=== PATIENT | male | born 1990 | race Caucasian/White ===

== ENCOUNTER 2016-12-06 04:25 | Emergency (ER) | payer SELFPAY ==
[2016-12-06 04:44] VITALS: O2SAT 95
[2016-12-06] MEDS ORDERED: ONDANSETRON ODT 8 MG TAB ONE (05:30)
[2016-12-06] MEDS ORDERED: ONDANSETRON ODT 8 MG TAB SL ONE (05:30)
--- NOTE | 2016-12-06 05:33 | ED.PDOC ---
History of Present Illness - General Chief Complaint: Fever Stated Complaint: fever, cough Time Seen by Provider: 12/06/16 05:30 Source: patient Exam Limitations: no limitations - History of Present Illness Initial Comments: Patient complains of N/V for two days. He is unsure how many times it has happened. He says he has had a "little bit" of non-bloody diarrhea. Also says he has had a fever and runny nose. Denies sick contacts. Denies abdominal pain. + subjective fever. Is able to take in oral fluids. No other complaints. Timing/Duration: other - 2 days Severity: mild Improving Factors: nothing Worsening Factors: nothing Associated Symptoms: denies symptoms Allergies/Adverse Reactions: Allergies Latex Allergy (Mild, Verified 10/02/16 15:31) Rash Home Medications: Ambulatory Orders Cephalexin Monohydrate [Keflex] 500 mg PO Q8H #30 cap 10/26/16 Ondansetron Tab [Zofran Tab] 4 mg PO Q6HR PRN #10 tab 12/06/16 Review of Systems - Review of Systems Constitutional: States: see HPI EENTM: States: see HPI Respiratory: States: no symptoms reported Cardiology: States: no symptoms reported Gastrointestinal/Abdominal: States: see HPI Genitourinary: States: no symptoms reported Musculoskeletal: States: no symptoms reported Skin: States: no symptoms reported Neurological: States: no symptoms reported Endocrine: States: no symptoms reported Hematologic/Lymphatic: States: no symptoms reported Past Medical History (General) - Patient Medical History Hx Seizures: No Hx Stroke: No Hx Dementia: No Hx Asthma: No Hx of COPD: No Hx Cardiac Disorders: No Hx Congestive Heart Failure: No Hx Pacemaker: No Hx Hypertension: No Hx Thyroid Disease: No Hx Diabetes: No Hx Gastroesophageal Reflux: No Hx Renal Disease: No Hx Cancer: No Hx of HIV: No Hx Hepatitis C: No Hx MRSA: No - Vaccination History Hx Tetanus, Diphtheria Vaccination: No Hx Influenza Vaccination: No Hx Pneumococcal Vaccination: No Immunizations Up to Date: No - Social History Hx Tobacco Use: Yes Hx Chewing Tobacco Use: Yes Hx Alcohol Use: Yes Hx Substance Use: No Hx Substance Use Treatment: No Hx Depression: No Hx Physical Abuse: No Hx Emotional Abuse: No Hx Suspected Abuse: No - Female History Patient : No Family Medical History - Family History Father Family History: No Known Living Status: Still Living Hx Family;Other: pt states he has gerd Physical Exam - Physical Exam General Appearance: Alert Eye Exam: bilateral normal Ears, Nose, Throat: normal ENT inspection Neck: non-tender, full range of motion, supple, lymphadenopathy (R) Respiratory: chest non-tender Cardiovascular/Chest: normal peripheral pulses, regular rate, rhythm Gastrointestinal/Abdominal: normal bowel sounds, non tender, soft Extremity: normal inspection Skin Exam: normal color Progress - Progress Progress: 12/06/16 05:34 Zofran ODT 8 mg po x one Departure - Departure Clinical Impression: Upper respiratory infection, Nausea & vomiting Disposition: Discharge to Home or Self Care Condition: Good Departure Forms: ED Discharge - Pt. Copy, Patient Portal Self Enrollment Diet: resume usual diet Activity: increase activity as tolerated Prescriptions: Ondansetron Tab [Zofran Tab] 4 mg PO Q6HR PRN #10 tab PRN Reason: Nausea Home Medications: Ambulatory Orders Cephalexin Monohydrate [Keflex] 500 mg PO Q8H #30 cap 10/26/16 Ondansetron Tab [Zofran Tab] 4 mg PO Q6HR PRN #10 tab 12/06/16 Additional Instructions: Increase oral fluids. Take medications as directed. Return to ER if abdominal pain develops or symptoms do not resolve in 48 hours.
[2016-12-06 05:36] VITALS: BP 115/72; TEMP 98.1
== END 2016-12-06 05:43 | disposition home or self-care (01) ==
LOC: ER 04:25
DX: J06.9 Acute upper respiratory infection, unspecified (principal); R11.2 Nausea with vomiting, unspecified; Z87.891 Personal history of nicotine dependence; Z91.040 Latex allergy status

== ENCOUNTER 2017-05-09 01:51 | Emergency (ER) | payer SELFPAY ==
[2017-05-09 02:03] VITALS: BP 128/85; TEMP 98.2; O2SAT 96
--- NOTE | 2017-05-09 02:10 | ED.PDOC ---
History of Present Illness - General Chief Complaint: Fever Stated Complaint: fever, coughing, sore throat, sinuses x 2 days Time Seen by Provider: 05/09/17 02:04 Source: patient, RN notes reviewed, Vital Signs reviewed Exam Limitations: no limitations - History of Present Illness Initial Comments: Patient comes in with a 2 day history of fever to 101, cough, sore throat and sinus pain. He took Tylenol yesterday but has not taken anything else. + ear pain, + nausea, + sick contacts - unknown illness. Timing/Duration: constant - for 2 days Fever Severity/Quality: greater than 100.5 F Fever [employer]: Tylenol Associated Symptoms: cough, nausea/vomiting, sore throat Review of Systems - Review of Systems Constitutional: States: chills, fever, malaise EENTM: States: ear pain, nose congestion, throat pain, other - sinus pain Respiratory: States: cough - non-productive, short of breath, stridor, wheezing Gastrointestinal/Abdominal: States: nausea. Denies: abdominal pain, vomiting Musculoskeletal: States: no symptoms reported Skin: States: no symptoms reported Neurological: States: no symptoms reported. Denies: headache All other Systems: No Change from Baseline Past Medical History (General) - Patient Medical History Hx Seizures: No Hx Stroke: No Hx Dementia: No Hx Asthma: No Hx of COPD: No Hx Cardiac Disorders: No Hx Congestive Heart Failure: No Hx Pacemaker: No Hx Hypertension: No Hx Thyroid Disease: No Hx Diabetes: No Hx Gastroesophageal Reflux: No Hx Renal Disease: No Hx Cancer: No Hx of HIV: No Hx Hepatitis C: No Hx MRSA: No Surgical History: no surgical history - Vaccination History Hx Tetanus, Diphtheria Vaccination: No Hx Influenza Vaccination: No Hx Pneumococcal Vaccination: No Immunizations Up to Date: No - Social History Hx Tobacco Use: Yes Hx Chewing Tobacco Use: Yes Hx Alcohol Use: Yes Hx Substance Use: No Hx Substance Use Treatment: No Hx Depression: No Feels Threatened In Home Enviroment: No Feels Threatened In a Relationship: No Hx Physical Abuse: No Hx Emotional Abuse: No Hx Suspected Abuse: No - Female History Patient : No Family Medical History - Family History Father Family History: No Known Living Status: Still Living Hx Family;Other: pt states he has gerd Physical Exam - Physical Exam General Appearance: Alert, Comfortable, No apparent distress, Well Developed, Well Groomed, Well Hydrated, Well Nourished ENT Exam: hearing grossly normal, TM dull - on L, TM red - On L, pharyngeal erythema, other - maxillary and frontal sinus tenderness Neck: non-tender, full range of motion, supple, normal inspection Respiratory: lungs clear, normal breath sounds, no respiratory distress, no accessory muscle use Cardiovascular/Chest: regular rate, rhythm, no gallop, no murmur Neurologic: alert, normal mood/affect, oriented x 3 Skin Exam: normal color, warm/dry Progress - Results/Orders Results/Orders: Rapid Strep: Negative Departure - Departure Clinical Impression: Upper respiratory infection Qualifiers: URI type: acute laryngopharyngitis Qualified Code(s): J06.0 - Acute laryngopharyngitis Acute bronchitis Qualifiers: Bronchitis organism: unspecified organism Qualified Code(s): J20.9 - Acute bronchitis, unspecified Time of Disposition: 02:30 Disposition: Discharge to Home or Self Care Condition: Good Departure Forms: ED Discharge - Pt. Copy, Patient Portal Self Enrollment Instructions: DI for Acute Bronchitis, DI for Viral Upper Respiratory Infection -- Adult Diet: resume usual diet Activity: increase activity as tolerated Prescriptions: Cefuroxime Axetil [Ceftin] 500 mg PO BID #14 tab Home Medications: Ambulatory Orders Cefuroxime Axetil [Ceftin] 500 mg PO BID #14 tab 05/09/17
[2017-05-09] MEDS ORDERED: CEFUROXIME AXETIL TAB 250 MG TAB PO ONE (02:29)
== END 2017-05-09 02:39 | disposition home or self-care (01) ==
LOC: ER 01:51
DX: J06.9 Acute upper respiratory infection, unspecified (principal); J20.9 Acute bronchitis, unspecified; Z87.891 Personal history of nicotine dependence

== ENCOUNTER 2017-09-25 01:17 | Emergency (ER) | payer SELFPAY ==
[2017-09-25 01:29] VITALS: TEMP 97.9
[2017-09-25] MEDS ORDERED: ONDANSETRON INJ 4 MG/2 ML VIAL IV ONE (01:44)
[2017-09-25] MEDS ORDERED: SODIUM CHLORIDE 0.9% 1000ML 1,000 ML IVS ONE (01:44)
--- NOTE | 2017-09-25 01:46 | ED.PDOC ---
History of Present Illness - General Chief Complaint: GI Problem Stated Complaint: Nausea, vomiting x 3 days Time Seen by Provider: 09/25/17 01:20 Information Source: patient, RN notes reviewed, Vital Signs reviewed Exam Limitations: no limitations - History of Present Illness Initial Comments: Patient comes to ER with c/o nausea and vomiting for 3 days. No fever, chills, abdominal pain or diarrhea. He is sitting up in the bed with a bottle with spit from dipping tobacco in it. Abdominal Pain Onset Location: other - Denies abdominal pain Pain Radiation: no radiation Timing/Duration: days - 3 Improving Factors: nothing Worsening Factors: other - Dipping tobacco Associated Symptoms: fatigue, nausea/vomiting, weakness Review of Systems - Review of Systems Constitutional: States: malaise. Denies: chills, fever EENTM: States: no symptoms reported Respiratory: States: no symptoms reported Cardiology: States: no symptoms reported Gastrointestinal/Abdominal: States: see HPI, nausea, vomiting. Denies: abdominal pain, diarrhea Musculoskeletal: States: muscle pain - generalized body aches Skin: States: no symptoms reported Neurological: States: headache All other Systems: No Change from Baseline Past Medical History (General) - Patient Medical History Hx Seizures: No Hx Stroke: No Hx Dementia: No Hx Asthma: No Hx of COPD: No Hx Cardiac Disorders: No Hx Congestive Heart Failure: No Hx Pacemaker: No Hx Hypertension: No Hx Thyroid Disease: No Hx Diabetes: No Hx Gastroesophageal Reflux: No Hx Renal Disease: No Hx Cancer: No Hx of HIV: No Hx Hepatitis C: No Hx MRSA: No Surgical History: no surgical history - Vaccination History Hx Tetanus, Diphtheria Vaccination: No Hx Influenza Vaccination: No Hx Pneumococcal Vaccination: No Immunizations Up to Date: Yes - Social History Hx Tobacco Use: No Hx Chewing Tobacco Use: Yes Hx Alcohol Use: No Hx Substance Use: No Hx Substance Use Treatment: No Hx Depression: No Hx Physical Abuse: No Hx Emotional Abuse: No Hx Suspected Abuse: No - Female History Patient : No Family Medical History - Family History Father Family History: No Known Living Status: Still Living Hx Family;Other: pt states he has gerd Physical Exam - Physical Exam General Appearance: Alert, Comfortable, No apparent distress, Well Developed, Well Groomed, Well Hydrated, Well Nourished Neck: supple, normal inspection Respiratory: lungs clear, normal breath sounds, no respiratory distress, no accessory muscle use Cardiovascular/Chest: regular rate, rhythm, no gallop, no JVD, no murmur Gastrointestinal/Abdominal: normal bowel sounds, no organomegaly, guarding, tenderness - mild, generalized tenderness, no rebound Extremity: normal range of motion, normal inspection Neurologic: alert, normal mood/affect, oriented x 3 Skin Exam: normal color, warm/dry Special Observations: No evidence of discomfort, Smiling, Using mobile device, Other - Using chewing tobacco Comments: Vital Signs 09/25/17 09/25/17 01:25 01:26 Temperature 97.9 F Pulse Rate [ 102 H 102 H right radial] Respiratory 18 18 Rate Blood Pressure 125/79 [Right Arm] O2 Sat by Pulse 96 Oximetry Progress - Progress Progress: 09/25/17 02:34 Patient reports he is feeling better after Zofran 4mg IV and 1L NS bolus. Sitting comfortably in bed. He is currently using chewing tobacco. Will d/c home with Rx for Zofran. - Results/Orders Results/Orders: Laboratory Tests 09/25/17 09/25/17 02:00 02:00 WBC 9.0 RBC 4.93 Hgb 15.2 Hct 44.9 MCV 91.2 MCH 30.9 MCHC 33.9 RDW 12.6 Plt Count 275 MPV 9.2 Absolute Neuts (auto) 5.60 Absolute Lymphs (auto) 2.40 Absolute Monos (auto) 0.60 Absolute Eos (auto) 0.40 Absolute Basos (auto) 0.00 Neutrophils % 62.1 Lymphocytes % 26.3 Monocytes % 7.1 Eosinophils % 4.1 Basophils % 0.4 Sodium 138 Potassium 4.2 Chloride 101 Carbon Dioxide 32 H Anion Gap 9.2 L BUN 16 Creatinine 0.95 BUN/Creatinine Ratio 16.8 Random Glucose 98 Serum Osmolality 276.8 Calcium 9.9 Total Bilirubin 0.5 AST 22 ALT 27 Alkaline Phosphatase 72 Serum Total Protein 7.8 Albumin 4.4 Globulin 3.4 Albumin/Globulin Ratio 1.3 Amylase 64 Lipase 23 Departure - Departure Clinical Impression: Gastroenteritis Time of Disposition: 02:36 Disposition: Discharge to Home or Self Care Condition: Good Departure Forms: ED Discharge - Pt. Copy, Patient Portal Self Enrollment Instructions: DI for Viral Gastroenteritis -- Adult Diet: resume usual diet Activity: increase activity as tolerated Home Medications: Ambulatory Orders Cefuroxime Axetil [Ceftin] 500 mg PO BID #14 tab 05/09/17
[2017-09-25] MEDS ORDERED: ONDANSETRON ODT (ER DISP) 8 MG TAB PO ONE (02:32)
[2017-09-25 02:49] VITALS: BP 120/68; O2SAT 98
== END 2017-09-25 02:48 | disposition home or self-care (01) ==
LOC: ER 01:17
DX: K52.9 Noninfective gastroenteritis and colitis, unspecified (principal); F17.220 Nicotine dependence, chewing tobacco, uncomplicated
CPT/HCPCS: 36415; 80053; 82150; 83690; 85025; J2405; J7030

== ENCOUNTER 2017-10-27 07:02 | Emergency (ER) | payer SELFPAY ==
[2017-10-27 07:14] VITALS: TEMP 97.7; O2SAT 97
[2017-10-27] MEDS: IPRATROPIUM/ALBUTEROL 3 ML VIAL NEB ONE (07:28)
--- NOTE | 2017-10-27 07:38 | RAD ---
EXAM DESCRIPTION: XR CHEST 2 VIEWS CLINICAL HISTORY: cough COMPARISON: 10/19/2016 TECHNIQUE: PA/lateral FINDINGS: Heart size is normal. The lungs are clear. No acute bony abnormality. IMPRESSION: No acute cardiopulmonary process. Electronically signed by: Pj Correa MD 10/27/2017 7:37 AM [facility]
--- NOTE | 2017-10-27 07:48 | ED.PDOC ---
History of Present Illness - General Chief Complaint: Respiratory Problem Stated Complaint: cough and sorethroat Time Seen by Provider: 10/27/17 07:45 Source: patient Exam Limitations: no limitations - History of Present Illness Comments: PT COMES TO THE ED WITH COMPLAINT OF FEVER, SORE THROAT, PRODUCTIVE COUGH AND SOB. Timing/Duration: week Cough Quality/Degree: productive cough Improving Factors: nothing Worsening Factors: nothing Associated Symptoms: cough, fever/chills, nasal congestion, nasal drainage, shortness of breath, sore throat, wheezing Allergies/Adverse Reactions: Allergies Latex Allergy (Mild, Verified 10/27/17 07:14) Rash Home Medications: Ambulatory Orders Albuterol Inhaler [Ventolin Hfa Inhaler] 2 puff INH Q4HR PRN #1 inh 10/27/17 Benzonatate Perles [Tessalon Perles] 200 mg PO TID PRN #30 cap 10/27/17 Spacer/Aerosol-Holding Chamber [Aerochamber Plus] 1 mis INH DAILY #1 10/27/17 Review of Systems - Review of Systems Constitutional: States: see HPI, chills, fever EENTM: States: see HPI, nose congestion, throat pain Respiratory: States: see HPI, cough, short of breath Cardiology: Denies: chest pain, palpitations Gastrointestinal/Abdominal: Denies: abdominal pain, nausea, vomiting Past Medical History (General) - Patient Medical History Hx Seizures: No Hx Stroke: No Hx Dementia: No Hx Asthma: No Hx of COPD: No Hx Cardiac Disorders: No Hx Congestive Heart Failure: No Hx Pacemaker: No Hx Hypertension: No Hx Thyroid Disease: No Hx Diabetes: No Hx Gastroesophageal Reflux: No Hx Renal Disease: No Hx Cancer: No Hx of HIV: No Hx Hepatitis C: No Hx MRSA: No Surgical History: no surgical history - Vaccination History Hx Tetanus, Diphtheria Vaccination: No Hx Influenza Vaccination: No Hx Pneumococcal Vaccination: No - Social History Hx Tobacco Use: No - uses vapor cigarette Hx Chewing Tobacco Use: Yes Hx Alcohol Use: No Hx Substance Use: No Hx Substance Use Treatment: No Hx Depression: No Hx Physical Abuse: No Hx Emotional Abuse: No Hx Suspected Abuse: No - Female History Patient : No Family Medical History - Family History Father Family History: No Known Living Status: Still Living Hx Family;Other: pt states he has gerd Physical Exam - Physical Exam General Appearance: Alert, No apparent distress, Well Developed, Well Groomed, Well Hydrated Eye Exam: bilateral normal ENT Exam: pharyngeal erythema Neck: non-tender, supple Respiratory: lungs clear, normal breath sounds, no respiratory distress Cardiovascular/Chest: regular rate, rhythm, no murmur Gastrointestinal/Abdominal: non tender, soft Extremity: normal inspection Neurologic: alert, normal mood/affect, oriented x 3 Skin Exam: normal color, warm/dry Progress - Progress Progress: 10/27/17 07:48 PT REPORTS SOME IMPROVEMENT IN SYMPTOMS AFTER DUONEB IN THE ED. XRAY FINDINGS DISCUSSED. - EKG/XRAY/CT XRAY: chest - NO ACUTE DISEASE Departure - Departure Clinical Impression: Acute bronchitis Time of Disposition: 07:49 Disposition: Discharge to Home or Self Care Condition: Good Departure Forms: ED Discharge - Pt. Copy, Patient Portal Self Enrollment Instructions: DI for Acute Bronchitis Referrals: [facility] [Provider Group] - 1-5 Days Prescriptions: Albuterol Inhaler [Ventolin Hfa Inhaler] 2 puff INH Q4HR PRN #1 inh PRN Reason: Shortness Of Breath/Wheezing Benzonatate Perles [Tessalon Perles] 200 mg PO TID PRN #30 cap PRN Reason: Cough Spacer/Aerosol-Holding Chamber [Aerochamber Plus] 1 mis INH DAILY #1 Home Medications: Ambulatory Orders Albuterol Inhaler [Ventolin Hfa Inhaler] 2 puff INH Q4HR PRN #1 inh 10/27/17 Benzonatate Perles [Tessalon Perles] 200 mg PO TID PRN #30 cap 10/27/17 Spacer/Aerosol-Holding Chamber [Aerochamber Plus] 1 mis INH DAILY #1 10/27/17
[2017-10-27 08:05] VITALS: BP 134/83
== END 2017-10-27 08:01 | disposition home or self-care (01) ==
LOC: ER 07:02
DX: J20.9 Acute bronchitis, unspecified (principal); F17.210 Nicotine dependence, cigarettes, uncomplicated; Z91.040 Latex allergy status
CPT/HCPCS: 71020; 94640; J7620

== ENCOUNTER 2017-10-31 11:16 | Emergency (ER) | payer SELFPAY ==
--- NOTE | 2017-10-31 11:33 | ED.PDOC ---
History of Present Illness - General Chief Complaint: General Stated Complaint: fatigue,uncoordination Time Seen by Provider: 10/31/17 11:30 Source: patient, RN notes reviewed, Vital Signs reviewed Additional Information: Pt presents to ER complaining of fatigue and difficulty sleeping. 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 He has not other compaints. - History of Present Illness Timing/Duration: other - several weeks Severity: moderate Improving Factors: rest Worsening Factors: nothing Associated Symptoms: weakness Allergies/Adverse Reactions: Allergies Latex Allergy (Mild, Verified 10/27/17 07:14) Rash Home Medications: Ambulatory Orders NK [NK] 10/31/17 Review of Systems - Review of Systems Constitutional: States: malaise, weakness EENTM: States: no symptoms reported Respiratory: States: no symptoms reported Cardiology: States: no symptoms reported Gastrointestinal/Abdominal: States: no symptoms reported Genitourinary: States: no symptoms reported Musculoskeletal: States: no symptoms reported Skin: States: no symptoms reported Neurological: States: no symptoms reported Endocrine: States: no symptoms reported Hematologic/Lymphatic: States: no symptoms reported Past Medical History (General) - Patient Medical History Hx Seizures: No Hx Stroke: No Hx Dementia: No Hx Asthma: No Hx of COPD: No Hx Cardiac Disorders: No Hx Congestive Heart Failure: No Hx Pacemaker: No Hx Hypertension: No Hx Thyroid Disease: No Hx Diabetes: No Hx Gastroesophageal Reflux: No Hx Renal Disease: No Hx Cancer: No Hx of HIV: No Hx Hepatitis C: No Hx MRSA: No Surgical History: no surgical history - Vaccination History Hx Tetanus, Diphtheria Vaccination: No Hx Influenza Vaccination: No Hx Pneumococcal Vaccination: No - Social History Hx Tobacco Use: Yes Hx Chewing Tobacco Use: Yes Hx Alcohol Use: No Hx Substance Use: No Hx Substance Use Treatment: No Hx Depression: No Hx Physical Abuse: No Hx Emotional Abuse: No Hx Suspected Abuse: No - Female History Patient : No Family Medical History - Family History Father Family History: No Known Living Status: Still Living Hx Family;Other: pt states he has gerd Physical Exam - Physical Exam General Appearance: Alert, Comfortable, No apparent distress, Well Developed, Well Groomed, Well Hydrated, Well Nourished, Other - Initially poor eye contact but after he took a nap he had better eye contact and more interaction Eye Exam: bilateral normal Ears, Nose, Throat: hearing grossly normal, normal ENT inspection, normal pharynx Neck: non-tender, full range of motion, supple, normal inspection Respiratory: normal breath sounds, no respiratory distress, no accessory muscle use Cardiovascular/Chest: normal peripheral pulses, regular rate, rhythm, no edema Gastrointestinal/Abdominal: non tender, soft Back Exam: normal inspection Extremity: normal range of motion, non-tender, normal inspection 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 Denies depressed mood. Denies SI/HI., oriented x 3 Progress - Progress Progress: 10/31/17 11:41 Pt in no visible distress. Affect suggestive of depressive mood disorder. However, Pt is motivated to find out if he has anything metabolically wrong with him. Plan is for basic lab work-up to assess for thyroid, metabolic, or hematologic abnormalities to explain his symptoms. Discussed importance of sleep hygiene as well. 10/31/17 13:05 Symptoms improved after taking a nap. Labs reviewed with patient. He is stable for discharge home. - Results/Orders Results/Orders: 10/31/17 11:58 CMP [COMPLETE METABOLIC PROFILE] Stat TSH [THYROID STIMULATING HORMONE] Stat Laboratory Results - last 24 hr 10/31/17 10/31/17 10/31/17 11:58 11:58 11:58 WBC 8.7 RBC 4.72 Hgb 14.7 Hct 42.4 MCV 89.8 MCH 31.1 H MCHC 34.6 RDW 12.6 Plt Count 257 MPV 9.3 Absolute Neuts (auto) 4.80 Absolute Lymphs (auto) 2.70 Absolute Monos (auto) 0.80 Absolute Eos (auto) 0.40 Absolute Basos (auto) 0.00 Neutrophils % 55.7 Lymphocytes % 30.6 Monocytes % 9.0 Eosinophils % 4.4 Basophils % 0.3 Sodium 138 Potassium 4.6 Chloride 100 L Carbon Dioxide 31 Anion Gap 11.6 L BUN 15 Creatinine 0.97 BUN/Creatinine Ratio 15.5 Random Glucose 99 Serum Osmolality 276.5 Calcium 10.1 Total Bilirubin 0.4 AST 16 ALT 15 Alkaline Phosphatase 68 Serum Total Protein 7.4 Albumin 4.3 Globulin 3.1 Albumin/Globulin Ratio 1.4 Urine Color Urine Appearance Urine pH Ur Specific [place] Urine Protein Urine Glucose (UA) Urine Ketones Urine Blood Urine Nitrite Urine Bilirubin Urine Urobilinogen Ur Leukocyte Esterase Urine RBC Urine WBC Ur Epithelial Cells Urine Bacteria Urine Opiates Screen Negative Urine Barbiturates Negative Ur Phencyclidine Scrn Negative U Amphetamin/Meth Scrn Negative U Benzodiazepines Scrn Negative U Cocaine Metab Screen Negative U Cannabinoids Screen Negative 10/31/17 11:58 WBC RBC Hgb Hct MCV MCH MCHC RDW Plt Count MPV Absolute Neuts (auto) Absolute Lymphs (auto) Absolute Monos (auto) Absolute Eos (auto) Absolute Basos (auto) Neutrophils % Lymphocytes % Monocytes % Eosinophils % Basophils % Sodium Potassium Chloride Carbon Dioxide Anion Gap BUN Creatinine BUN/Creatinine Ratio Random Glucose Serum Osmolality Calcium Total Bilirubin AST ALT Alkaline Phosphatase Serum Total Protein Albumin Globulin Albumin/Globulin Ratio Urine Color Yellow Urine Appearance Clear Urine pH 5.5 Ur Specific [place] 1.025 Urine Protein Negative Urine Glucose (UA) Negative Urine Ketones Negative Urine Blood Negative Urine Nitrite Negative Urine Bilirubin Negative Urine Urobilinogen 0.2 Ur Leukocyte Esterase Negative Urine RBC 0 Urine WBC 0 Ur Epithelial Cells 0 Urine Bacteria 0 Urine Opiates Screen Urine Barbiturates Ur Phencyclidine Scrn U Amphetamin/Meth Scrn U Benzodiazepines Scrn U Cocaine Metab Screen U Cannabinoids Screen Departure - Departure Clinical Impression: Fatigue Qualifiers: Fatigue type: unspecified Qualified Code(s): R53.83 - Other fatigue Insomnia Qualifiers: Insomnia type: unspecified Qualified Code(s): G47.00 - Insomnia, unspecified Time of Disposition: 13:05 Disposition: Discharge to Home or Self Care Condition: Good Departure Forms: ED Discharge - Pt. Copy, Patient Portal Self Enrollment Instructions: Creating a Healthy Sleep Routine, Melatonin: Nature's Sleeping Pill? Home Medications: Ambulatory Orders NK [NK] 10/31/17 Additional Instructions: Work on getting regular sleep (6 to 8 hours every night). Follow-up with primary care provider if condition persists in 5 to 7 days.
[2017-10-31 11:38] VITALS: BP 113/76; TEMP 96.5; O2SAT 97
== END 2017-10-31 13:01 | disposition home or self-care (01) ==
LOC: ER 11:16
DX: R53.83 Other fatigue (principal); G47.00 Insomnia, unspecified; Z91.040 Latex allergy status

== ENCOUNTER 2017-11-01 19:10 | Emergency (ER) | payer SELFPAY ==
[2017-11-01 19:30] VITALS: O2SAT 99
[2017-11-01] MEDS ORDERED: SUCRALFATE 1 GM/10 ML 1 GM UD PO ONE (20:04)
[2017-11-01] MEDS ORDERED: FAMOTIDINE 20 MG TAB PO ONE (20:04)
--- NOTE | 2017-11-01 20:17 | RAD ---
EXAM DESCRIPTION: Abdomen Series CLINICAL HISTORY: 26 years Male ,syncope, diarrhea COMPARISON: 08/31/2016. TECHNIQUE: Two views of the abdomen were provided.. FINDINGS: No free air is identified beneath the hemidiaphragms. No dilated loops of bowel to suggest obstruction. There is a probable calcified granuloma in the right perihilar region. The lungs are otherwise clear. Heart size is normal. IMPRESSION: No acute plain film abnormality is identified. Electronically signed by: Sang Douglas 11/01/2017 8:16 PM [facility]
--- NOTE | 2017-11-01 20:34 | ED.PDOC ---
History of Present Illness - General Chief Complaint: Respiratory Problem Stated Complaint: short of breath Time Seen by Provider: 11/01/17 19:21 Source: patient Exam Limitations: no limitations - History of Present Illness Initial Comments: The patient is a 26-year-old male presenting to the emergency room secondary to a brief syncopal episode while sitting down in [facility] today. The patient was seen here yesterday for some fatigue and generalized discomfort. Lab work was good then. The patient is not describing anything that sounds like a seizure or a postictal period. No urinary incontinence. No biting of tongue. He has had no seizures in the past. He did eat supper before. He comes in with poor eye contact. The patient does however have a bottle for his spitting due to his snuff. Multiple notes have been made of this and his previous visits. The patient also has a history of significant gastritis in the past and is not on any of his GI medications. He also reports intermittent diarrhea for the last couple weeks. No fevers. No blood in the stool. No melena. No vomiting. He does report that when he eats meals he does have some stomach cramping. Timing/Duration: momentarily Severity: moderate Improving Factors: nothing Worsening Factors: eating Associated Symptoms: diaphoresis, malaise, nausea/vomiting Allergies/Adverse Reactions: Allergies Latex Allergy (Mild, Verified 10/27/17 07:14) Rash Home Medications: Ambulatory Orders Esomeprazole Magnesium [Nexium] 40 mg PO DAILY #30 cap 11/01/17 Sucralfate Tab [Carafate Tab] 1 gm PO QID #120 tab 11/01/17 Review of Systems - Review of Systems Constitutional: States: malaise EENTM: States: no symptoms reported Respiratory: States: no symptoms reported Cardiology: States: no symptoms reported Gastrointestinal/Abdominal: States: abdominal pain, diarrhea. Denies: constipation, vomiting Genitourinary: States: no symptoms reported Musculoskeletal: States: no symptoms reported Skin: States: no symptoms reported Neurological: States: other - yncope 1 Endocrine: States: no symptoms reported All other Systems: No Change from Baseline Past Medical History (General) - Patient Medical History Hx Seizures: No Hx Stroke: No Hx Dementia: No Hx Asthma: No Hx of COPD: No Hx Cardiac Disorders: No Hx Congestive Heart Failure: No Hx Pacemaker: No Hx Hypertension: No Hx Thyroid Disease: No Hx Diabetes: No Hx Gastroesophageal Reflux: No Hx Renal Disease: No Hx Cancer: No Hx of HIV: No Hx Hepatitis C: No Hx MRSA: No Surgical History: no surgical history - Vaccination History Hx Tetanus, Diphtheria Vaccination: No Hx Influenza Vaccination: No Hx Pneumococcal Vaccination: No - Social History Hx Tobacco Use: Yes Hx Chewing Tobacco Use: Yes Hx Alcohol Use: No Hx Substance Use: No Hx Substance Use Treatment: No Hx Depression: No Hx Physical Abuse: No Hx Emotional Abuse: No Hx Suspected Abuse: No - Female History Patient : No Family Medical History - Family History Father Family History: No Known Living Status: Still Living Hx Family;Other: pt states he has gerd Physical Exam - Physical Exam General Appearance: Alert, Comfortable, No apparent distress - poor eye contact Eye Exam: bilateral normal Ears, Nose, Throat: hearing grossly normal, normal ENT inspection, normal pharynx Neck: full range of motion, supple Respiratory: lungs clear, normal breath sounds, no respiratory distress, no accessory muscle use Cardiovascular/Chest: normal peripheral pulses, regular rate, rhythm, no edema Peripheral Pulses: radial,right: 2+, radial,left: 2+, dorsalis pedis,right: 2+, dorsalis pedis,left: 2+ Gastrointestinal/Abdominal: soft, other - ild epigastric discomfort palpation. No definite rebound or peritoneal signs. 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 I believe that this is due to significant gastritis and esophagitis. The patient needs to stop dipping. He does have a significant history of gastritis and needs to remain on his stomach medications. The patient will be written for Carafate for 1 month as well as Nexium for one month. After that he either needs to hot die picker and take Zantac daily or Pepcid daily. He needs to keep himself well hydrated. Tilt vital signs are negative here today. He has been monitored on telemetry monitoring showing only a normal sinus rhythm. Lab work is reassuring. X-ray is reassuring. He should follow-up with his primary care doctor later this week and get set up with a account director for an endoscopy. Stop dipping. - Results/Orders Results/Orders: Laboratory Tests 11/01/17 11/01/17 11/01/17 19:30 19:30 20:15 WBC 8.9 RBC 4.79 Hgb 14.9 Hct 43.0 MCV 89.8 MCH 31.0 MCHC 34.6 RDW 12.7 Plt Count 277 MPV 9.3 Absolute Neuts (auto) 5.40 Absolute Lymphs (auto) 2.40 Absolute Monos (auto) 0.80 Absolute Eos (auto) 0.20 Absolute Basos (auto) 0.00 Neutrophils % 60.7 Lymphocytes % 27.3 Monocytes % 9.2 H Eosinophils % 2.4 Basophils % 0.4 Sodium 139 Potassium 4.5 Chloride 101 Carbon Dioxide 31 Anion Gap 11.5 L BUN 17 Creatinine 1.10 BUN/Creatinine Ratio 15.5 Random Glucose 111 H Serum Osmolality 279.8 Calcium 9.5 Magnesium 2.2 Total Bilirubin 0.7 AST 17 ALT 15 Alkaline Phosphatase 66 Creatine Kinase 124 CK-MB (CK-2) 1.0 CK-MB (CK-2) % Not Reportable Troponin I < 0.02 B-Natriuretic Peptide < 5.0 Serum Total Protein 7.4 Albumin 4.4 Globulin 3.0 Albumin/Globulin Ratio 1.5 Amylase 69 Lipase 25 TSH 2.00 Urine Color Yellow Urine Appearance Clear Urine pH 5.5 Ur Specific [place] >= 1.030 Urine Protein Negative Urine Glucose (UA) Negative Urine Ketones Negative Urine Blood Trace-intact H Urine Nitrite Negative Urine Bilirubin Negative Urine Urobilinogen 0.2 Ur Leukocyte Esterase Negative Urine RBC 0-1 Urine WBC 0-1 Ur Epithelial Cells 0-1 Urine Bacteria Rare Urine Mucus Trace abdominal series showed no acute pathology. EKG shows normal sinus rhythm. No acute ST segment changes concerning for ischemia. Mild right axis deviation Departure - Departure Clinical Impression: Syncope Qualifiers: Syncope type: vasovagal syncope Qualified Code(s): R55 - Syncope and collapse Gastritis Qualifiers: Gastritis type: unspecified gastritis Chronicity: chronic Gastritis bleeding: presence of bleeding unspecified Qualified Code(s): K29.50 - Unspecified chronic gastritis without bleeding Disposition: Discharge to Home or Self Care Condition: Fair Departure Forms: ED Discharge - Pt. Copy, Patient Portal Self Enrollment Instructions: DI for Gastritis Diet: bland diet Activity: increase activity as tolerated Prescriptions: Esomeprazole Magnesium [Nexium] 40 mg PO DAILY #30 cap Sucralfate Tab [Carafate Tab] 1 gm PO QID #120 tab Home Medications: Ambulatory Orders Esomeprazole Magnesium [Nexium] 40 mg PO DAILY #30 cap 11/01/17 Sucralfate Tab [Carafate Tab] 1 gm PO QID #120 tab 11/01/17 Additional Instructions: the patient's 26-year-old male presenting after a syncopal episode. I believe that this is due to significant gastritis and esophagitis. The patient needs to stop dipping. He does have a significant history of gastritis and needs to remain on his stomach medications. The patient will be written for Carafate for 1 month as well as Nexium for one month. After that he either needs to hot die picker and take Zantac daily or Pepcid daily. He needs to keep himself well hydrated. Tilt vital signs are negative here today. He has been monitored on telemetry monitoring showing only a normal sinus rhythm. Lab work is reassuring. X-ray is reassuring. He should follow-up with his primary care doctor later this week and get set up with a account director for an endoscopy. Stop dipping.
[2017-11-01 20:40] VITALS: BP 120/67
[2017-11-01 20:44] VITALS: TEMP 97.3
== END 2017-11-01 20:44 | disposition home or self-care (01) ==
LOC: ER 19:10
DX: K29.50 Unspecified chronic gastritis without bleeding (principal); R55 Syncope and collapse; Z91.040 Latex allergy status

== ENCOUNTER 2017-11-09 23:20 | Emergency (ER) | payer SELFPAY ==
--- NOTE | 2017-11-09 23:32 | ED.PDOC ---
History of Present Illness - General Chief Complaint: Fever Stated Complaint: FEVER, BODY ACHES Time Seen by Provider: 11/09/17 23:23 Source: patient, RN notes reviewed, Vital Signs reviewed Exam Limitations: no limitations - History of Present Illness Allergies/Adverse Reactions: Allergies Latex Allergy (Mild, Verified 11/09/17 23:35) Rash Home Medications: Ambulatory Orders Esomeprazole Magnesium [Nexium] 40 mg PO DAILY #30 cap 11/01/17 Sucralfate Tab [Carafate Tab] 1 gm PO QID #120 tab 11/01/17 Acetaminophen [Tylenol] 2 tablet PO Q4HR #20 cap 11/09/17 Ibuprofen 400 mg PO Q6HR #20 tab 11/09/17 Ondansetron [Zofran Odt] 2 mg PO Q8HR #10 tab 11/09/17 Promethazine HCl 25 mg PO Q6HRS #10 tab 11/09/17 Review of Systems - Review of Systems Constitutional: States: chills, fever, malaise, weakness EENTM: States: nose congestion, throat pain. Denies: eye pain, blurred vision, ear pain, ear discharge Respiratory: States: cough. Denies: orthopnea, short of breath, wheezing Cardiology: Denies: chest pain, palpitations Gastrointestinal/Abdominal: States: diarrhea, nausea, vomiting Genitourinary: Denies: dysuria, frequency, hematuria Musculoskeletal: States: muscle pain. Denies: back pain, neck pain Skin: Denies: lesions, lumps, rash Neurological: States: headache Endocrine: Denies: excessive sweating, flushing, increased hunger, increased thirst, increased urine Hematologic/Lymphatic: States: no symptoms reported. Denies: easy bruising All other Systems: Reviewed and Negative Past Medical History (General) - Patient Medical History Hx Seizures: No Hx Stroke: No Hx Dementia: No Hx Asthma: No Hx of COPD: No Hx Cardiac Disorders: No Hx Congestive Heart Failure: No Hx Pacemaker: No Hx Hypertension: No Hx Thyroid Disease: No Hx Diabetes: No Hx Gastroesophageal Reflux: No Hx Renal Disease: No Hx Cancer: No Hx of HIV: No Hx Hepatitis C: No Hx MRSA: No - Vaccination History Hx Tetanus, Diphtheria Vaccination: No Hx Influenza Vaccination: No Hx Pneumococcal Vaccination: No - Social History Hx Tobacco Use: Yes Hx Chewing Tobacco Use: Yes Hx Alcohol Use: No Hx Substance Use: No Hx Substance Use Treatment: No Hx Depression: No Hx Physical Abuse: No Hx Emotional Abuse: No Hx Suspected Abuse: No - Female History Patient : No Family Medical History - Family History Father Family History: No Known Living Status: Still Living Hx Family Asthma: No Hx Family;Other: pt states he has gerd Physical Exam - Physical Exam General Appearance: Alert, Comfortable, No apparent distress, Well Developed, Well Groomed, Well Hydrated, Well Nourished Eye Exam: bilateral normal ENT Exam: normal ENT inspection Neck: non-tender, full range of motion, supple, normal inspection, trachea midline Respiratory: lungs clear, normal breath sounds, no respiratory distress, no accessory muscle use, respiratory distress Cardiovascular/Chest: normal peripheral pulses, regular rate, rhythm Gastrointestinal/Abdominal: non tender, soft, no organomegaly Extremity: normal range of motion, normal capillary refill 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 WITH RESPIRATORY, ENT, GI, COMPLAINTS. DOES NOT APPEAR CLINICALLY DEHYDRATED, O2 SAT IS GOOD, LUNGS ARE CLEAR. WILL TREAT INFLUENZE. Departure - Departure Clinical Impression: Fever in adult, Influenza Time of Disposition: 23:37 Disposition: Discharge to Home or Self Care Condition: Excellent Departure Forms: ED Discharge - Pt. Copy, Patient Portal Self Enrollment Instructions: DI for Fever (Symptom) -- Adult Diet: bland diet Activity: increase activity as tolerated Prescriptions: Acetaminophen [Tylenol] 2 tablet PO Q4HR #20 cap Ibuprofen 400 mg PO Q6HR #20 tab Promethazine HCl 25 mg PO Q6HRS #10 tab Ondansetron [Zofran Odt] 2 mg PO Q8HR #10 tab Home Medications: Ambulatory Orders Esomeprazole Magnesium [Nexium] 40 mg PO DAILY #30 cap 11/01/17 Sucralfate Tab [Carafate Tab] 1 gm PO QID #120 tab 11/01/17 Acetaminophen [Tylenol] 2 tablet PO Q4HR #20 cap 11/09/17 Ibuprofen 400 mg PO Q6HR #20 tab 11/09/17 Ondansetron [Zofran Odt] 2 mg PO Q8HR #10 tab 11/09/17 Promethazine HCl 25 mg PO Q6HRS #10 tab 11/09/17 Additional Instructions: FOLLOW UP WITH PRIMARY CARE FOR RECHECK IN 1-2 DAYS
[2017-11-09 23:36] VITALS: BP 142/86; TEMP 95.5; O2SAT 97
== END 2017-11-09 23:48 | disposition home or self-care (01) ==
LOC: ER 23:20
DX: J11.1 Influenza due to unidentified influenza virus with other respiratory manifestations (principal); Z87.891 Personal history of nicotine dependence; Z91.040 Latex allergy status

== ENCOUNTER 2017-11-14 00:24 | Emergency (ER) | payer SELFPAY ==
[2017-11-14] MEDS ORDERED: cefTRIAXone SODIUM 1 GM VIAL IM ONE (00:44)
--- NOTE | 2017-11-14 00:46 | ED.PDOC ---
History of Present Illness - General Chief Complaint: General Stated Complaint: cough x 1 day recent flu states Time Seen by Provider: 11/14/17 00:43 Source: patient Exam Limitations: no limitations - History of Present Illness Initial Comments: PRODUCTIVE COUGH X ONE DAY. HE VOICES THAT HE JUST GOT OVER THE FLU AND IS RUNNING A LOW GRADE FEVER. DENIES ANY VOMITING OR DIARRHEA. Timing/Duration: other - ONE DAY Severity: mild Improving Factors: nothing Worsening Factors: nothing Associated Symptoms: cough, fever/chills, malaise Allergies/Adverse Reactions: Allergies Latex Allergy (Mild, Verified 11/14/17 00:39) Rash Home Medications: Ambulatory Orders Esomeprazole Magnesium [Nexium] 40 mg PO DAILY #30 cap 11/01/17 Sucralfate Tab [Carafate Tab] 1 gm PO QID #120 tab 11/01/17 Acetaminophen [Tylenol] 2 tablet PO Q4HR #20 cap 11/09/17 Ibuprofen 400 mg PO Q6HR #20 tab 11/09/17 Ondansetron [Zofran Odt] 2 mg PO Q8HR #10 tab 11/09/17 Promethazine HCl 25 mg PO Q6HRS #10 tab 11/09/17 Benzonatate Perles [Tessalon Perles] 200 mg PO Q8HRS #15 cap 11/14/17 levoFLOXacin [Levaquin] 500 mg PO DAILY #7 tab 11/14/17 Review of Systems - Review of Systems Constitutional: States: fever EENTM: States: no symptoms reported Respiratory: States: cough Cardiology: States: no symptoms reported Gastrointestinal/Abdominal: States: no symptoms reported Genitourinary: States: no symptoms reported Musculoskeletal: States: no symptoms reported Skin: States: no symptoms reported Neurological: States: no symptoms reported Endocrine: States: no symptoms reported Hematologic/Lymphatic: States: no symptoms reported Past Medical History (General) - Patient Medical History Hx Seizures: No Hx Stroke: No Hx Dementia: No Hx Asthma: No Hx of COPD: No Hx Cardiac Disorders: No Hx Congestive Heart Failure: No Hx Pacemaker: No Hx Hypertension: No Hx Thyroid Disease: No Hx Diabetes: No Hx Gastroesophageal Reflux: No Hx Renal Disease: No Hx Cancer: No Hx of HIV: No Hx Hepatitis C: No Hx MRSA: No - Vaccination History Hx Tetanus, Diphtheria Vaccination: No Hx Influenza Vaccination: No Hx Pneumococcal Vaccination: No - Social History Hx Tobacco Use: Yes Hx Chewing Tobacco Use: Yes Hx Alcohol Use: No Hx Substance Use: No Hx Substance Use Treatment: No Hx Depression: No Hx Physical Abuse: No Hx Emotional Abuse: No Hx Suspected Abuse: No - Female History Patient : No Family Medical History - Family History Father Family History: No Known Living Status: Still Living Hx Family Asthma: No Hx Family;Other: pt states he has gerd Physical Exam - Physical Exam General Appearance: Alert, Anxious Eye Exam: bilateral normal Ears, Nose, Throat: hearing grossly normal, normal ENT inspection Neck: non-tender, full range of motion, supple Respiratory: chest non-tender, rhonchi - SCATERRED RHONCI NOTED, NO WHEEZES Cardiovascular/Chest: normal peripheral pulses, regular rate, rhythm, no edema, no gallop, no JVD, no murmur Peripheral Pulses: radial,right: 2+ Gastrointestinal/Abdominal: normal bowel sounds Rectal Exam: deferred Back Exam: normal inspection Extremity: normal range of motion Skin Exam: normal color Departure - Departure Clinical Impression: Bronchitis Time of Disposition: 00:48 Disposition: Discharge to Home or Self Care Condition: Good Departure Forms: ED Discharge - Pt. Copy, Patient Portal Self Enrollment Diet: resume usual diet Activity: increase activity as tolerated Prescriptions: Benzonatate Perles [Tessalon Perles] 200 mg PO Q8HRS #15 cap levoFLOXacin [Levaquin] 500 mg PO DAILY #7 tab Home Medications: Ambulatory Orders Esomeprazole Magnesium [Nexium] 40 mg PO DAILY #30 cap 11/01/17 Sucralfate Tab [Carafate Tab] 1 gm PO QID #120 tab 11/01/17 Acetaminophen [Tylenol] 2 tablet PO Q4HR #20 cap 11/09/17 Ibuprofen 400 mg PO Q6HR #20 tab 11/09/17 Ondansetron [Zofran Odt] 2 mg PO Q8HR #10 tab 11/09/17 Promethazine HCl 25 mg PO Q6HRS #10 tab 11/09/17 Benzonatate Perles [Tessalon Perles] 200 mg PO Q8HRS #15 cap 11/14/17 levoFLOXacin [Levaquin] 500 mg PO DAILY #7 tab 11/14/17
[2017-11-14 01:06] VITALS: BP 124/81; TEMP 97.5; O2SAT 98
== END 2017-11-14 01:06 | disposition home or self-care (01) ==
LOC: ER 00:24
DX: J40 Bronchitis, not specified as acute or chronic (principal); Z91.040 Latex allergy status

== ENCOUNTER 2017-12-14 03:05 | Emergency (ER) | payer SELFPAY ==
[2017-12-14] MEDS ORDERED: PROMETHAZINE HCL INJ 25 MG/ML VIAL IM ONE (03:20)
[2017-12-14] MEDS ORDERED: LACTATED RINGERS 1,000 ML IVS ONE (03:20)
--- NOTE | 2017-12-14 03:20 | ED.PDOC ---
History of Present Illness - General Chief Complaint: GI Problem Stated Complaint: vomited, diarrhea Time Seen by Provider: 12/14/17 03:15 Information Source: patient Exam Limitations: no limitations - History of Present Illness Initial Comments: Javier Hernandez 27 y/o male came to ER with diarrhea alternating with constipation ,intermittent nausea/vomiting for the last 3 days and abdominal cramps.Had tried to eat but could not keep anything down.No fever,no chills,no ill contact.No recent antibiotic use. Abdominal Pain Onset Location: unknown Pain Radiation: no radiation Quality: cramping Timing/Duration: changing over time, intermittent, other - see hpi Improving Factors: nothing Worsening Factors: nothing Associated Symptoms: other - see hpi Review of Systems - Review of Systems Constitutional: States: no symptoms reported EENTM: States: no symptoms reported Respiratory: States: no symptoms reported Cardiology: States: no symptoms reported Gastrointestinal/Abdominal: States: see HPI Genitourinary: States: no symptoms reported All other Systems: Reviewed and Negative, No Change from Baseline Past Medical History (General) - Patient Medical History Hx Seizures: No Hx Stroke: No Hx Dementia: No Hx Asthma: No Hx of COPD: No Hx Cardiac Disorders: No Hx Congestive Heart Failure: No Hx Pacemaker: No Hx Hypertension: No Hx Thyroid Disease: No Hx Diabetes: No Hx Gastroesophageal Reflux: No Hx Renal Disease: No Hx Cancer: No Hx of HIV: No Hx Hepatitis C: No Hx MRSA: No Surgical History: no surgical history - Vaccination History Hx Tetanus, Diphtheria Vaccination: No Hx Influenza Vaccination: No Hx Pneumococcal Vaccination: No - Social History Hx Tobacco Use: Yes Hx Chewing Tobacco Use: Yes Hx Alcohol Use: No Hx Substance Use: No Hx Substance Use Treatment: No Hx Depression: No Hx Physical Abuse: No Hx Emotional Abuse: No Hx Suspected Abuse: No - Female History Patient : No Family Medical History - Family History Father Family History: No Known Living Status: Still Living Hx Family Asthma: No Hx Family;Other: pt states he has gerd Physical Exam - Physical Exam General Appearance: Alert, Comfortable, No apparent distress Eyes, Ears, Nose, Throat Exam: normal ENT inspection, TMs normal, pharynx normal , other - non icteric sclerae Neck: full range of motion, supple, normal inspection Respiratory: chest non-tender, lungs clear, normal breath sounds Cardiovascular/Chest: normal peripheral pulses, regular rate, rhythm, no gallop , no murmur Peripheral Pulses: No deficit Gastrointestinal/Abdominal: normal bowel sounds, soft, no organomegaly, tenderness - to deep palpation all over no peritoneal signs Back Exam: no CVA tenderness, no vertebral tenderness Extremity: no pedal edema, no calf tenderness Neurologic: alert, oriented x 3 Skin Exam: normal color, warm/dry Progress - Progress Progress: 12/14/17 03:29 Last Vital Signs Temp 96.3 F L 12/14/17 03:18 Pulse 102 H 12/14/17 03:18 Resp 20 12/14/17 03:18 BP 135/85 12/14/17 03:18 Pulse Ox 95 12/14/17 03:18 - Results/Orders Results/Orders: Laboratory Tests 12/14/17 12/14/17 12/14/17 03:30 03:35 03:35 WBC 9.1 RBC 4.56 L Hgb 14.1 Hct 41.0 L MCV 89.8 MCH 30.9 MCHC 34.5 RDW 12.8 Plt Count 265 MPV 9.6 Absolute Neuts (auto) 4.90 Absolute Lymphs (auto) 2.80 Absolute Monos (auto) 0.80 Absolute Eos (auto) 0.70 H Absolute Basos (auto) 0.00 Neutrophils % 53.3 Lymphocytes % 30.5 Monocytes % 8.3 Eosinophils % 7.4 H Basophils % 0.5 Sodium 140 Potassium 3.5 L Chloride 105 Carbon Dioxide 27 Anion Gap 11.5 L BUN 15 Creatinine 1.26 BUN/Creatinine Ratio 11.9 Random Glucose 101 Serum Osmolality 280.4 Calcium 9.5 Total Bilirubin 0.6 AST 19 ALT 17 Alkaline Phosphatase 68 Serum Total Protein 7.3 Albumin 4.5 Globulin 2.8 Albumin/Globulin Ratio 1.6 Lipase 25 Urine Color Yellow Urine Appearance Clear Urine pH 7.0 Ur Specific [place] 1.025 Urine Protein Negative Urine Glucose (UA) Negative Urine Ketones Trace Urine Blood Trace-intact H Urine Nitrite Negative Urine Bilirubin Negative Urine Urobilinogen 1.0 Ur Leukocyte Esterase Negative Urine RBC 0-1 Urine WBC 0-1 Ur Epithelial Cells 0-1 Amorphous Sediment 1+ Urine Bacteria Rare Urine Mucus Trace - EKG/XRAY/CT XRAY: chest - no acute abnormalities Departure - Departure Clinical Impression: Gastroenteritis and colitis, viral Time of Disposition: 04:52 Disposition: Discharge to Home or Self Care Condition: Good Departure Forms: ED Discharge - Pt. Copy, Patient Portal Self Enrollment Instructions: DI for Viral Gastroenteritis -- Adult, Gastroenteritis Diet Prescriptions: Ondansetron [Zofran Odt] 8 mg PO Q8HRS PRN #7 tab PRN Reason: Nausea/Vomiting Home Medications: Ambulatory Orders Esomeprazole Magnesium [Nexium] 40 mg PO DAILY #30 cap 11/01/17 Sucralfate Tab [Carafate Tab] 1 gm PO QID #120 tab 11/01/17 Acetaminophen [Tylenol] 2 tablet PO Q4HR #20 cap 11/09/17 Ibuprofen 400 mg PO Q6HR #20 tab 11/09/17 Ondansetron [Zofran Odt] 2 mg PO Q8HR #10 tab 11/09/17 Promethazine HCl 25 mg PO Q6HRS #10 tab 11/09/17 Benzonatate Perles [Tessalon Perles] 200 mg PO Q8HRS #15 cap 11/14/17 levoFLOXacin [Levaquin] 500 mg PO DAILY #7 tab 11/14/17 Cefuroxime Axetil 250 mg PO BID #20 tab 11/20/17 Ondansetron [Zofran Odt] 8 mg PO Q8HRS PRN #7 tab 12/14/17 Additional Instructions: AVOID GREASY,SPICY,DAIRY FOODS UNTIL BETTER;Follow up with primary Md 2017 call for your appointment
--- NOTE | 2017-12-14 04:03 | RAD ---
EXAM DESCRIPTION: Abdomen Flat Upright (accession [id number]), Chest,1 View (accession [id number]) CLINICAL HISTORY: pain COMPARISON: 11/20/2017 FINDINGS: CHEST: Single view of the chest. Cardiac mediastinal silhouette has normal size and contour. No consolidation, pneumothorax, pleural effusion. No acute osseous abnormalities. ABDOMEN: Upright and spine views of the abdomen demonstrate no free intraperineal air. No dilated loops of large or small bowel. No abnormal calcifications. No gross abnormalities of the liver, spleen, or kidneys. No acute osseous abnormalities. IMPRESSION: 1. No acute pulmonary process. 2. Nonobstructive bowel gas pattern. Electronically signed by: Denis Barrow 12/14/2017 4:02 AM KINDERG[facility]NER
--- NOTE | 2017-12-14 04:03 | RAD ---
EXAM DESCRIPTION: Abdomen Flat Upright (accession [id number]), Chest,1 View (accession [id number]) CLINICAL HISTORY: pain COMPARISON: 11/20/2017 FINDINGS: CHEST: Single view of the chest. Cardiac mediastinal silhouette has normal size and contour. No consolidation, pneumothorax, pleural effusion. No acute osseous abnormalities. ABDOMEN: Upright and spine views of the abdomen demonstrate no free intraperineal air. No dilated loops of large or small bowel. No abnormal calcifications. No gross abnormalities of the liver, spleen, or kidneys. No acute osseous abnormalities. IMPRESSION: 1. No acute pulmonary process. 2. Nonobstructive bowel gas pattern. Electronically signed by: Denis Barrow 12/14/2017 4:02 AM OFFICE MESSENGER
[2017-12-14 05:09] VITALS: BP 106/71; TEMP 95.7; O2SAT 97
== END 2017-12-14 05:08 | disposition home or self-care (01) ==
LOC: ER 03:05
DX: A08.4 Viral intestinal infection, unspecified (principal); Z87.891 Personal history of nicotine dependence
CPT/HCPCS: 36415; 71045; 74019; 80053; 81001; 83690; 85025; J2550; J7120

== ENCOUNTER 2017-12-22 11:27 | Emergency (ER) | payer SELFPAY ==
[2017-12-22 12:49] VITALS: BP 135/91; TEMP 97.6; O2SAT 98
--- NOTE | 2017-12-22 13:29 | ED.PDOC ---
History of Present Illness - General Chief Complaint: General Stated Complaint: Metallic taste in mouth Time Seen by Provider: 12/22/17 13:19 Source: patient Exam Limitations: no limitations - History of Present Illness Initial Comments: Tip Hernandez 27 y/o male stated that he drank the faucet water which tasted nasty this am and since then had metallic taste on his tongue and also had episode of vomiting no diarrhea.Stated just move in to the house recently.No chronic medical problem but had been to er multiple times for numerous bodily complaints but lab test were normal.She was seen here a week ago with diarrhea/ vomiting.Labs were normal. Timing/Duration: 4-6 hours Severity: moderate Improving Factors: nothing Worsening Factors: other - see hpi Associated Symptoms: denies symptoms Allergies/Adverse Reactions: Allergies Latex Allergy (Mild, Verified 12/22/17 12:49) Rash Dove Soap Allergy (Uncoded 12/22/17 12:49) Home Medications: Ambulatory Orders Promethazine Tab [Phenergan Tablet] 25 mg PO .Q4H PRN #20 tab 12/22/17 Ranitidine HCl 150 mg PO BID #30 tab 12/22/17 Review of Systems - Review of Systems Constitutional: States: no symptoms reported EENTM: States: no symptoms reported Respiratory: States: no symptoms reported Cardiology: States: no symptoms reported Gastrointestinal/Abdominal: States: vomiting - x 1 after drinking faucet water Genitourinary: States: no symptoms reported Skin: States: no symptoms reported Neurological: States: no symptoms reported Endocrine: States: no symptoms reported Hematologic/Lymphatic: States: no symptoms reported All other Systems: Reviewed and Negative, No Change from Baseline Past Medical History (General) - Patient Medical History Hx Seizures: No Hx Stroke: No Hx Dementia: No Hx Asthma: No Hx of COPD: No Hx Cardiac Disorders: No Hx Congestive Heart Failure: No Hx Pacemaker: No Hx Hypertension: No Hx Thyroid Disease: No Hx Diabetes: No Hx Gastroesophageal Reflux: No Hx Renal Disease: No Hx Cancer: No Hx of HIV: No Hx Hepatitis C: No Hx MRSA: No Surgical History: no surgical history - Vaccination History Hx Tetanus, Diphtheria Vaccination: No Hx Influenza Vaccination: No Hx Pneumococcal Vaccination: No - Social History Hx Tobacco Use: No Hx Chewing Tobacco Use: Yes Hx Alcohol Use: No Hx Substance Use: No Hx Substance Use Treatment: No Hx Depression: No Hx Physical Abuse: No Hx Emotional Abuse: No Hx Suspected Abuse: No - Female History Patient : No Family Medical History - Family History Father Family History: No Known Living Status: Still Living Hx Family Asthma: No Hx Family;Other: pt states he has gerd Physical Exam - Physical Exam General Appearance: Alert, Comfortable, No apparent distress Eye Exam: bilateral normal Ears, Nose, Throat: hearing grossly normal, normal ENT inspection, normal pharynx Neck: non-tender, full range of motion, supple Respiratory: lungs clear, normal breath sounds, no respiratory distress Cardiovascular/Chest: normal peripheral pulses, regular rate, rhythm, no murmur Peripheral Pulses: radial,right: 2+, radial,left: 2+ Gastrointestinal/Abdominal: normal bowel sounds, non tender, soft, no organomegaly Back Exam: normal inspection, no CVA tenderness, no vertebral tenderness Extremity: non-tender, no pedal edema, no calf tenderness Neurologic: alert, oriented x 3 Skin Exam: normal color, warm/dry Departure - Departure Clinical Impression: Metallic taste Time of Disposition: 13:37 Disposition: Discharge to Home or Self Care Condition: Good Departure Forms: ED Discharge - Pt. Copy, Patient Portal Self Enrollment Diet: other - NEED TO DRINK BOTTLED WATER Prescriptions: Promethazine Tab [Phenergan Tablet] 25 mg PO .Q4H PRN #20 tab PRN Reason: Nausea Ranitidine HCl 150 mg PO BID #30 tab Home Medications: Ambulatory Orders Promethazine Tab [Phenergan Tablet] 25 mg PO .Q4H PRN #20 tab 12/22/17 Ranitidine HCl 150 mg PO BID #30 tab 12/22/17 Additional Instructions: NEED TO SIGN UP WITH PRIMARY Md for follow up and referral to specialist if symptoms not better in 10 days;GET YOUR WATER CHECKED BY YOUR [employer] [facility]
[2017-12-22] MEDS ORDERED: ALUM & MAG HYDROX-SIMETHICONE 30 ML, LIDOCAINE VISCOUS 2% 15 ML PO ONE ×2 (13:34)
[2017-12-22] MEDS ORDERED: SUCRALFATE 1 GM/10 ML 1 GM UD PO ONE (13:34)
[2017-12-22] MEDS ORDERED: LIDOCAINE HCL 2% (MOUTH-THROAT) 15 ML UD ONE (13:48)
[2017-12-22] MEDS ORDERED: ALUM & MAG HYDROX-SIMETHICONE 30 ML UD ONE (13:48)
== END 2017-12-22 13:56 | disposition home or self-care (01) ==
LOC: ER 11:27
DX: R43.8 Other disturbances of smell and taste (principal); Z91.040 Latex allergy status

== ENCOUNTER 2018-01-19 18:45 | Emergency (ER) | payer SELFPAY ==
[2018-01-19 19:08] VITALS: TEMP 97.7; O2SAT 98
--- NOTE | 2018-01-19 19:48 | ED.PDOC ---
History of Present Illness - General Chief Complaint: GI Problem Stated Complaint: nausea, vomiting, diarrhea, and cough x3 days. Time Seen by Provider: 01/19/18 19:42 Source: patient Exam Limitations: no limitations - History of Present Illness Timing/Duration: other - 3D Severity: mild Improving Factors: nothing Worsening Factors: nothing Associated Symptoms: nausea/vomiting Allergies/Adverse Reactions: Allergies Latex Allergy (Mild, Verified 12/22/17 12:49) Rash Dove Soap Allergy (Uncoded 12/22/17 12:49) Home Medications: Ambulatory Orders Promethazine Tab [Phenergan Tablet] 25 mg PO .Q4H PRN #20 tab 12/22/17 Ranitidine HCl 150 mg PO BID #30 tab 12/22/17 Promethazine HCl 25 mg PO Q6HR PRN #15 tab 01/19/18 Review of Systems - Review of Systems Constitutional: States: no symptoms reported EENTM: States: no symptoms reported Respiratory: States: cough. Denies: short of breath Cardiology: States: no symptoms reported Gastrointestinal/Abdominal: States: diarrhea, nausea, vomiting. Denies: abdominal pain Musculoskeletal: States: no symptoms reported Skin: States: no symptoms reported Neurological: States: no symptoms reported Endocrine: States: no symptoms reported Hematologic/Lymphatic: States: no symptoms reported All other Systems: Reviewed and Negative Past Medical History (General) - Patient Medical History Hx Seizures: No Hx Stroke: No Hx Dementia: No Hx Asthma: No Hx of COPD: No Hx Cardiac Disorders: No Hx Congestive Heart Failure: No Hx Pacemaker: No Hx Hypertension: No Hx Thyroid Disease: No Hx Diabetes: No Hx Gastroesophageal Reflux: No Hx Renal Disease: No Hx Cancer: No Hx of HIV: No Hx Hepatitis C: No Hx MRSA: No Surgical History: other - Vaccination History Hx Tetanus, Diphtheria Vaccination: No Hx Influenza Vaccination: No Hx Pneumococcal Vaccination: No - Social History Hx Tobacco Use: No Hx Chewing Tobacco Use: Yes Hx Alcohol Use: No Hx Substance Use: No Hx Substance Use Treatment: No Hx Depression: No Hx Physical Abuse: No Hx Emotional Abuse: No Hx Suspected Abuse: No - Female History Patient : No Family Medical History - Family History Father Family History: No Known Living Status: Still Living Hx Family Asthma: No Hx Family;Other: pt states he has gerd Physical Exam - Physical Exam General Appearance: Alert, Well Nourished Ears, Nose, Throat: hearing grossly normal, normal ENT inspection Neck: non-tender, full range of motion, other - NO LAD Respiratory: lungs clear, normal breath sounds Cardiovascular/Chest: normal peripheral pulses, regular rate, rhythm Peripheral Pulses: radial,right: 2+, radial,left: 2+ Gastrointestinal/Abdominal: normal bowel sounds, non tender, soft, no organomegaly, no pulsatile mass Extremity: normal range of motion, normal inspection Neurologic: no motor/sensory deficits, alert Skin Exam: normal color, warm/dry Lymphatic: no adenopathy Progress - Results/Orders Results/Orders: VIRAL GASTROENTERITIS - SUPPORTIVE CARE. PHENERGAN PRN N/V. PT AWARE OF IMODIUM FOR DIARRHEA. Departure - Departure Clinical Impression: Viral gastroenteritis Disposition: Discharge to Home or Self Care Condition: Good Departure Forms: ED Discharge - Pt. Copy, Patient Portal Self Enrollment Instructions: DI for Viral Gastroenteritis -- Adult Diet: bland diet Activity: increase activity as tolerated Prescriptions: Promethazine HCl 25 mg PO Q6HR PRN #15 tab PRN Reason: Nausea/Vomiting Home Medications: Ambulatory Orders Promethazine Tab [Phenergan Tablet] 25 mg PO .Q4H PRN #20 tab 12/22/17 Ranitidine HCl 150 mg PO BID #30 tab 12/22/17 Promethazine HCl 25 mg PO Q6HR PRN #15 tab 01/19/18
[2018-01-19 20:09] VITALS: BP 124/78
== END 2018-01-19 20:10 | disposition home or self-care (01) ==
LOC: ER 18:45
DX: A08.4 Viral intestinal infection, unspecified (principal); Z91.040 Latex allergy status

== ENCOUNTER 2018-02-28 21:16 | Emergency (ER) | payer SELFPAY ==
[2018-02-28 21:40] VITALS: O2SAT 96
[2018-02-28] MEDS ORDERED: ONDANSETRON ODT 8 MG TAB SL ONE (21:46)
[2018-02-28] MEDS ORDERED: SODIUM CHLORIDE 0.9% 1000ML 1,000 ML IVS ONE (21:46)
--- NOTE | 2018-02-28 21:48 | ED.PDOC ---
History of Present Illness - General Chief Complaint: GI Problem Stated Complaint: N/V/D, fever Time Seen by Provider: 02/28/18 21:46 Information Source: patient Exam Limitations: no limitations - History of Present Illness Initial Comments: patient comes in today with approximately 60 hours history of abdominal pain, but is described as mild cramping and intermittent in nature. Patient also states he's had fever to 102 the last 2 nights with explosive diarrhea greater than 10 times per day and bouts of emesis 5-6 times a day. Patient states he is a little bit weak and unable to keep down by mouth liquids. He denies any recent travel or questionable by mouth intake. He has no sick contacts. He's never had problems with his stomach before. He does not normally have heartburn or abdominal pain. He otherwise healthy and has no past medical history. He does not smoke, drink, or take illicit substances. He has no past surgical history. He denies taking any medication [id number] regularly. However, he did try some Imodium without improvement. Patient comes in today because it is not improving. Abdominal Pain Onset Location: generalized abdomen Pain Radiation: no radiation Quality: mild, cramping, intermittent Timing/Duration: days - 3 Improving Factors: nothing Worsening Factors: nothing Associated Symptoms: fever/chills Review of Systems - Review of Systems Constitutional: States: fever. Denies: chills EENTM: States: no symptoms reported. Denies: ear pain, nose congestion, throat pain Respiratory: States: no symptoms reported. Denies: cough, orthopnea, short of breath, wheezing Cardiology: States: no symptoms reported. Denies: chest pain Gastrointestinal/Abdominal: States: see HPI Genitourinary: States: no symptoms reported. Denies: dysuria Skin: States: no symptoms reported Past Medical History (General) - Patient Medical History Hx Seizures: No Hx Stroke: No Hx Dementia: No Hx Asthma: No Hx of COPD: No Hx Cardiac Disorders: No Hx Congestive Heart Failure: No Hx Pacemaker: No Hx Hypertension: No Hx Thyroid Disease: No Hx Diabetes: No Hx Gastroesophageal Reflux: No Hx Renal Disease: No Hx Cancer: No Hx of HIV: No Hx Hepatitis C: No Hx MRSA: No Surgical History: no surgical history - Vaccination History Hx Tetanus, Diphtheria Vaccination: No Hx Influenza Vaccination: No Hx Pneumococcal Vaccination: No - Social History Hx Tobacco Use: No Hx Chewing Tobacco Use: Yes Hx Alcohol Use: No Hx Substance Use: No Hx Substance Use Treatment: No Hx Depression: No Hx Physical Abuse: No Hx Emotional Abuse: No Hx Suspected Abuse: No - Female History Patient : No Family Medical History - Family History Father Family History: No Known Living Status: Still Living Hx Family Asthma: No Hx Family;Other: pt states he has gerd Physical Exam - Physical Exam General Appearance: Alert, No apparent distress Eyes, Ears, Nose, Throat Exam: PERRL/EOMI, normal ENT inspection, TMs normal, pharynx normal, scleral icterus (R) Neck: non-tender, full range of motion, supple, normal inspection Respiratory: chest non-tender, lungs clear, normal breath sounds, no respiratory distress Cardiovascular/Chest: normal peripheral pulses, regular rate, rhythm, no edema, no gallop, no murmur Peripheral Pulses: No deficit Gastrointestinal/Abdominal: normal bowel sounds, soft, other - minimally diffusely tender without rebound or guardingpositive bowel sounds nondistended Neurologic: alert, oriented x 3 Progress - Progress Progress: 02/28/18 22:41 02/28/18 21:46 Sodium Chloride 0.9% 1000ML [Ns 1000 ml] 1,000 ml IVS ONCE Laboratory Results WBC 8.1 K/mm3 (4.8-10.8) 02/28/18 21:47 RBC 4.65 M/mm3 (4.70-6.10) L 02/28/18 21:47 Hgb 14.4 gm/dL (14.0-18.0) 02/28/18 21:47 Hct 42.0 % (42.0-52.0) 02/28/18 21:47 MCV 90.2 fl (80.0-94.0) 02/28/18 21:47 MCH 30.9 pg (27.0-31.0) 02/28/18 21:47 MCHC 34.3 g/dL (33.0-37.0) 02/28/18 21:47 RDW 13.1 % (11.5-14.5) 02/28/18 21:47 Plt Count 227 K/mm3 (130-400) 02/28/18 21:47 MPV 9.2 fl (7.40-10.4) 02/28/18 21:47 Absolute Neuts (auto) 6.50 K/uL (1.8-6.8) 02/28/18 21:47 Absolute Lymphs (auto) 0.60 K/uL (1.0-3.4) L 02/28/18 21:47 Absolute Monos (auto) 0.80 K/uL (0.2-0.8) 02/28/18 21:47 Absolute Eos (auto) 0.20 K/uL (0.0-0.4) 02/28/18 21:47 Absolute Basos (auto) 0.00 K/uL (0.0-0.1) 02/28/18 21:47 Neutrophils % 81.2 % (42.0-78.0) H 02/28/18 21:47 Lymphocytes % 6.8 % (20.0-50.0) L 02/28/18 21:47 Monocytes % 9.6 % (2.0-9.0) H 02/28/18 21:47 Eosinophils % 2.1 % (1.0-5.0) 02/28/18 21:47 Basophils % 0.3 % (0.0-2.0) 02/28/18 21:47 Sodium 136 mmol/L (135-145) 02/28/18 21:47 Potassium 4.2 mmol/L (3.6-5.0) 02/28/18 21:47 Chloride 103 mmol/L (101-111) 02/28/18 21:47 Carbon Dioxide 26 mmol/L (21-31) 02/28/18 21:47 Anion Gap 11.2 (12-18) L 02/28/18 21:47 BUN 16 mg/dL (7-18) 02/28/18 21:47 Creatinine 0.81 mg/dL (0.6-1.3) 02/28/18 21:47 BUN/Creatinine Ratio 19.8 (10-20) 02/28/18 21:47 Random Glucose 98 mg/dL (70-105) 02/28/18 21:47 Serum Osmolality 273.1 mOsm/L (275-295) L 02/28/18 21:47 Calcium 9.6 mg/dL (8.4-10.2) 02/28/18 21:47 Total Bilirubin 0.7 mg/dL (0.2-1.0) 02/28/18 21:47 AST 29 IU/L (10-42) 02/28/18 21:47 ALT 27 IU/L (10-60) 02/28/18 21:47 Alkaline Phosphatase 66 IU/L (42-121) 02/28/18 21:47 Serum Total Protein 7.7 gm/dL (6.4-8.2) 02/28/18 21:47 Albumin 4.4 g/dl (3.2-5.5) 02/28/18 21:47 Globulin 3.3 gm/dL (2.3-3.5) 02/28/18 21:47 Albumin/Globulin Ratio 1.3 (1.1-1.9) 02/28/18 21:47 Patient feels better after IVF and Zofran. Departure - Departure Clinical Impression: Acute gastroenteritis, Gastroenteritis and colitis, viral Disposition: Discharge to Home or Self Care Departure Forms: ED Discharge - Pt. Copy, Patient Portal Self Enrollment Instructions: DI for Diarrhea and Traveler's Diarrhea -- Adult Diet: bland diet - no dairy until resolution Home Medications: Ambulatory Orders Promethazine Tab [Phenergan Tablet] 25 mg PO .Q4H PRN #20 tab 12/22/17 Ranitidine HCl 150 mg PO BID #30 tab 12/22/17 Promethazine HCl 25 mg PO Q6HR PRN #15 tab 01/19/18 Ondansetron Tab [Zofran Tab] 4 mg PO Q6HRS PRN 4 Days #10 tab 02/28/18 Additional Instructions: patient may have work excuse for today and tomorrow. Slow return to normal diet with dehydration precautions. Increase fluid as tolerated. Return to ER for intractable nausea, abdominal pain, or severe worsening of symptoms. Follow -up with PCP if no improvement in 2-3 days.
[2018-02-28 22:53] VITALS: BP 129/70; TEMP 97.2
== END 2018-02-28 22:53 | disposition home or self-care (01) ==
LOC: ER 21:16
DX: A08.4 Viral intestinal infection, unspecified (principal); F17.220 Nicotine dependence, chewing tobacco, uncomplicated
CPT/HCPCS: 36415; 80053; 85025; J7030

== ENCOUNTER 2018-05-29 05:12 | Emergency (ER) | payer SELFPAY ==
[2018-05-29 05:29] VITALS: O2SAT 98
--- NOTE | 2018-05-29 06:26 | ED.PDOC ---
History of Present Illness - General Chief Complaint: Fever Stated Complaint: Fever, stiff neck Time Seen by Provider: 05/29/18 06:16 Source: patient, RN notes reviewed, Vital Signs reviewed Additional Information: 27 YEAR OLD HERE FOR EVALUATION OF FEVER ON AND OFF FOR 3 DAYS HE IS ON CEPHALEXIN FOR SINUSITIS HE APPARENTLY GETS RECURRENT SINUSITIS HE HAS NO HEADACHE NO EAR ACHE NO SORE THROAT NO CHEST PAIN NO COUGH OR SHORTNESS OF BREATH NO NAUSEA NO VOMTING DIARRHEA NO DYSURIA - History of Present Illness Severity: mild Improving Factors: nothing Worsening Factors: nothing Allergies/Adverse Reactions: Allergies Latex Allergy (Mild, Verified 12/22/17 12:49) Rash Dove Soap Allergy (Uncoded 12/22/17 12:49) Home Medications: Ambulatory Orders Promethazine Tab [Phenergan Tablet] 25 mg PO .Q4H PRN #20 tab 12/22/17 Ranitidine HCl 150 mg PO BID #30 tab 12/22/17 Promethazine HCl 25 mg PO Q6HR PRN #15 tab 01/19/18 Ondansetron Tab [Zofran Tab] 4 mg PO Q6HRS PRN 4 Days #10 tab 02/28/18 Review of Systems - Review of Systems Constitutional: States: no symptoms reported EENTM: States: nose congestion Respiratory: States: no symptoms reported Cardiology: States: no symptoms reported Gastrointestinal/Abdominal: States: no symptoms reported Genitourinary: States: no symptoms reported Skin: States: no symptoms reported Neurological: States: no symptoms reported Endocrine: States: no symptoms reported Past Medical History (General) - Patient Medical History Hx Seizures: No Hx Stroke: No Hx Dementia: No Hx Asthma: No Hx of COPD: No Hx Cardiac Disorders: No Hx Congestive Heart Failure: No Hx Pacemaker: No Hx Hypertension: No Hx Thyroid Disease: No Hx Diabetes: No Hx Gastroesophageal Reflux: No Hx Renal Disease: No Hx Cancer: No Hx of HIV: No Hx Hepatitis C: No Hx MRSA: No Surgical History: no surgical history - Vaccination History Hx Tetanus, Diphtheria Vaccination: No Hx Influenza Vaccination: No Hx Pneumococcal Vaccination: No Immunizations Up to Date: No - Social History Hx Tobacco Use: Yes - Quit one year ago Hx Chewing Tobacco Use: Yes Hx Alcohol Use: No Hx Substance Use: No Hx Substance Use Treatment: No Hx Depression: No Feels Threatened In Home Enviroment: No Feels Threatened In a Relationship: No Hx Physical Abuse: No Hx Emotional Abuse: No Hx Suspected Abuse: No - Activities of Daily Living Hospice Agency (if applicable):: None - Female History Patient : No - Triage Comment ED Triage Comment: Pt c/o fever that has been ongoing for two days. Pt also c/ o of stiffness in his neck and shoulders. Pt states that the highest his fever has gotten was 100.0. Pt denies taking anything for his fever. Family Medical History - Family History Father Family History: No Known Living Status: Still Living Hx Family Asthma: No Hx Family;Other: pt states he has gerd Physical Exam - Physical Exam General Appearance: Alert, Comfortable Eye Exam: bilateral normal Ears, Nose, Throat: hearing grossly normal, normal ENT inspection, normal pharynx, abnormal TM (R) Neck: non-tender, full range of motion, supple Respiratory: chest non-tender, lungs clear, normal breath sounds, no respiratory distress Cardiovascular/Chest: normal peripheral pulses, regular rate, rhythm, no edema, no gallop, no JVD Peripheral Pulses: radial,right: 2+, radial,left: 2+, femoral,right: 2+, femoral ,left: 2+ Gastrointestinal/Abdominal: normal bowel sounds, non tender, soft, no organomegaly Back Exam: normal inspection, no CVA tenderness Extremity: normal range of motion, non-tender, normal inspection Neurologic: 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 Copy, Patient Portal Self Enrollment Diet: resume usual diet Home Medications: Ambulatory Orders Promethazine Tab [Phenergan Tablet] 25 mg PO .Q4H PRN #20 tab 12/22/17 Ranitidine HCl 150 mg PO BID #30 tab 12/22/17 Promethazine HCl 25 mg PO Q6HR PRN #15 tab 01/19/18 Ondansetron Tab [Zofran Tab] 4 mg PO Q6HRS PRN 4 Days #10 tab 02/28/18
[2018-05-29 06:35] VITALS: BP 111/75; TEMP 97.8
== END 2018-05-29 06:34 | disposition home or self-care (01) ==
LOC: ER 05:12
DX: J32.9 Chronic sinusitis, unspecified (principal); Z87.891 Personal history of nicotine dependence; Z91.040 Latex allergy status

== ENCOUNTER 2018-08-30 16:24 | Emergency (ER) | payer SELFPAY ==
[2018-08-30 16:46] VITALS: BP 123/84
--- NOTE | 2018-08-30 17:00 | ED.PDOC ---
History of Present Illness - General Chief Complaint: General Stated Complaint: SORE THROAT Time Seen by Provider: 08/30/18 16:45 Source: patient Exam Limitations: no limitations - History of Present Illness Initial Comments: PT PRESENTS TO THE ED WITH COMPLAINT OF SORE THROAT, FEVER (101) NASAL CONGESTION, NAUSEA, VOMITING, COUGH, HEADACHE, AND BODYACHES FOR THE PAST 2 DAYS. PT STATES THAT HE HAS NOT TAKEN ANY OVER THE COUNTER MEDS. Severity: moderate Associated Symptoms: cough, fever/chills, headaches, nausea/vomiting Allergies/Adverse Reactions: Allergies Latex Allergy (Mild, Verified 12/22/17 12:49) Rash Dove Soap Allergy (Uncoded 12/22/17 12:49) Home Medications: Ambulatory Orders Promethazine Tab [Phenergan Tablet] 25 mg PO .Q4H PRN #20 tab 12/22/17 Ranitidine HCl 150 mg PO BID #30 tab 12/22/17 Promethazine HCl 25 mg PO Q6HR PRN #15 tab 01/19/18 Ondansetron Tab [Zofran Tab] 4 mg PO Q6HRS PRN 4 Days #10 tab 02/28/18 Ibuprofen 800 mg PO Q8HR PRN #30 tab 08/30/18 Promethazine Tab [Phenergan Tablet] 25 mg PO Q6H PRN #15 tab 08/30/18 Review of Systems - Review of Systems Constitutional: States: chills, fever EENTM: States: nose congestion, throat pain Respiratory: States: see HPI, cough. Denies: short of breath Cardiology: Denies: chest pain, syncope Gastrointestinal/Abdominal: States: see HPI, nausea, vomiting. Denies: abdominal pain Genitourinary: Denies: dysuria, frequency Musculoskeletal: Denies: joint pain, joint swelling Neurological: States: headache. Denies: numbness Past Medical History (General) - Patient Medical History Hx Seizures: No Hx Stroke: No Hx Dementia: No Hx Asthma: No Hx of COPD: No Hx Cardiac Disorders: No Hx Congestive Heart Failure: No Hx Pacemaker: No Hx Hypertension: No Hx Thyroid Disease: No Hx Diabetes: No Hx Gastroesophageal Reflux: No Hx Renal Disease: No Hx Cancer: No Hx of HIV: No Hx Hepatitis C: No Hx MRSA: No Surgical History: no surgical history - Vaccination History Hx Tetanus, Diphtheria Vaccination: No Hx Influenza Vaccination: No Hx Pneumococcal Vaccination: No - Social History Hx Tobacco Use: Yes - Quit one year ago Hx Chewing Tobacco Use: Yes Hx Alcohol Use: No Hx Substance Use: No Hx Substance Use Treatment: No Hx Depression: No Hx Physical Abuse: No Hx Emotional Abuse: No Hx Suspected Abuse: No - Female History Patient : No Family Medical History - Family History Father Family History: No Known Living Status: Still Living Hx Family Asthma: No Hx Family;Other: pt states he has gerd Physical Exam - Physical Exam General Appearance: Alert, No apparent distress, Well Developed, Well Groomed, Well Hydrated, Well Nourished Ears, Nose, Throat: hearing grossly normal, pharyngeal erythema Neck: supple, lymphadenopathy (L) Respiratory: lungs clear, normal breath sounds, no respiratory distress Cardiovascular/Chest: regular rate, rhythm, no murmur Gastrointestinal/Abdominal: non tender, soft Neurologic: alert, normal mood/affect, oriented x 3 Skin Exam: normal color, warm/dry Progress - Progress Progress: 08/30/18 17:42 FLU AND STREP SCREEN BOTH NEGATIVE. PT REPORTS SIGNIFICANT IMPROVEMENT IN SYMPTOMS AFTER TORADOL AND PHENERGAN. DIAGNOSTIC STUDIES DISCUSSED. Departure - Departure Clinical Impression: Viral pharyngitis, Nausea & vomiting, Headache, Myalgia, Viral upper respiratory illness Time of Disposition: 17:43 Disposition: Discharge to Home or Self Care Condition: Fair Departure Forms: ED Discharge - Pt. Copy, Patient Portal Self Enrollment Instructions: Viral Pharyngitis (DC), Viral Upper Respiratory Infection, Adult (DC) Referrals: [facility] [Provider Group] - 1-5 Days Prescriptions: Ibuprofen 800 mg PO Q8HR PRN #30 tab PRN Reason: Pain Promethazine Tab [Phenergan Tablet] 25 mg PO Q6H PRN #15 tab PRN Reason: Nausea/Vomiting Home Medications: Ambulatory Orders Promethazine Tab [Phenergan Tablet] 25 mg PO .Q4H PRN #20 tab 12/22/17 Ranitidine HCl 150 mg PO BID #30 tab 12/22/17 Promethazine HCl 25 mg PO Q6HR PRN #15 tab 01/19/18 Ondansetron Tab [Zofran Tab] 4 mg PO Q6HRS PRN 4 Days #10 tab 02/28/18 Ibuprofen 800 mg PO Q8HR PRN #30 tab 08/30/18 Promethazine Tab [Phenergan Tablet] 25 mg PO Q6H PRN #15 tab 08/30/18
[2018-08-30] MEDS: PROMETHAZINE HCL INJ 25 MG/ML VIAL IM ONE (17:05)
[2018-08-30] MEDS: KETOROLAC TROMETHAMINE INJ 60 MG/2 ML VIAL IM ONE (17:05)
[2018-08-30 18:29] VITALS: TEMP 99.1; O2SAT 98
== END 2018-08-30 17:50 | disposition home or self-care (01) ==
LOC: ER 16:24
DX: J06.9 Acute upper respiratory infection, unspecified (principal); J02.8 Acute pharyngitis due to other specified organisms; B97.89 Other viral agents as the cause of diseases classified elsewhere; R11.2 Nausea with vomiting, unspecified; R51 Headache; Z87.891 Personal history of nicotine dependence; Z91.040 Latex allergy status
CPT/HCPCS: 87070; 87502; 87880; J1885; J2550

== ENCOUNTER 2018-09-03 17:27 | Emergency (ER) | payer SELFPAY ==
--- NOTE | 2018-09-03 17:36 | ED.PDOC ---
History of Present Illness - General Time Seen by Provider: 09/03/18 17:31 Source: patient, RN notes reviewed, Vital Signs reviewed Additional Information: 27 YEAR OLD WHITE MALE SMOKER PRESENTS WITH COUGH CONGESTION LAST FEW DAYS HIS COUGH IS PRODUCTIVE AND SPUTUM IS BLOOD TINGED HE WORKS AT [employer] A [employer]PER[employer] HE IS WITH 2 KIDS HE STATES HE IS UNDER STRESS THE REASON FOR NICOTINE USE NO HISTORY OF ASTHMA COPD NO WEIGHT LOSS - History of Present Illness Timing/Duration: 1 week Severity: mild Improving Factors: nothing Worsening Factors: nothing Associated Symptoms: cough, malaise Allergies/Adverse Reactions: Allergies Latex Allergy (Mild, Verified 12/22/17 12:49) Rash Dove Soap Allergy (Uncoded 12/22/17 12:49) Home Medications: Ambulatory Orders Promethazine Tab [Phenergan Tablet] 25 mg PO .Q4H PRN #20 tab 12/22/17 Ranitidine HCl 150 mg PO BID #30 tab 12/22/17 Promethazine HCl 25 mg PO Q6HR PRN #15 tab 01/19/18 Ondansetron Tab [Zofran Tab] 4 mg PO Q6HRS PRN 4 Days #10 tab 02/28/18 Ibuprofen 800 mg PO Q8HR PRN #30 tab 08/30/18 Promethazine Tab [Phenergan Tablet] 25 mg PO Q6H PRN #15 tab 08/30/18 Azithromycin [Zithromax Z-Gabriel] 250 mg PO Q24HR #6 tab 09/03/18 Methylprednisolone [Medrol Dose Gabriel] 4 mg PO DAILY 6 Days #21 tab 09/03/18 Review of Systems - Review of Systems Constitutional: States: see HPI EENTM: States: no symptoms reported Respiratory: States: cough, wheezing Cardiology: States: no symptoms reported Gastrointestinal/Abdominal: States: no symptoms reported Genitourinary: States: no symptoms reported Neurological: States: no symptoms reported Endocrine: States: no symptoms reported Hematologic/Lymphatic: States: no symptoms reported Past Medical History (General) - Patient Medical History Hx Seizures: No Hx Stroke: No Hx Dementia: No Hx Asthma: No Hx of COPD: No Hx Cardiac Disorders: No Hx Congestive Heart Failure: No Hx Pacemaker: No Hx Hypertension: No Hx Thyroid Disease: No Hx Diabetes: No Hx Gastroesophageal Reflux: No Hx Renal Disease: No Hx Cancer: No Hx of HIV: No Hx Hepatitis C: No Hx MRSA: No - Vaccination History Hx Tetanus, Diphtheria Vaccination: No Hx Influenza Vaccination: No Hx Pneumococcal Vaccination: No - Social History Hx Tobacco Use: Yes - Quit one year ago Hx Chewing Tobacco Use: Yes Hx Alcohol Use: No Hx Substance Use: No Hx Substance Use Treatment: No Hx Depression: No Hx Physical Abuse: No Hx Emotional Abuse: No Hx Suspected Abuse: No - Female History Patient : No Family Medical History - Family History Father Family History: No Known Living Status: Still Living Hx Family Asthma: No Hx Family;Other: pt states he has gerd Physical Exam - Physical Exam General Appearance: Alert, Comfortable Eye Exam: bilateral normal Ears, Nose, Throat: hearing grossly normal, normal ENT inspection, normal pharynx Neck: non-tender, full range of motion, supple Respiratory: chest non-tender, wheezing Cardiovascular/Chest: normal peripheral pulses, regular rate, rhythm, no edema, no gallop, no JVD, no murmur Gastrointestinal/Abdominal: normal bowel sounds, non tender, soft, no organomegaly 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, no motor/sensory deficits, alert Departure - Departure Clinical Impression: Bronchitis Time of Disposition: 17:41 Disposition: Discharge to Home or Self Care Condition: Good Home Medications: Ambulatory Orders Promethazine Tab [Phenergan Tablet] 25 mg PO .Q4H PRN #20 tab 12/22/17 Ranitidine HCl 150 mg PO BID #30 tab 12/22/17 Promethazine HCl 25 mg PO Q6HR PRN #15 tab 01/19/18 Ondansetron Tab [Zofran Tab] 4 mg PO Q6HRS PRN 4 Days #10 tab 02/28/18 Ibuprofen 800 mg PO Q8HR PRN #30 tab 08/30/18 Promethazine Tab [Phenergan Tablet] 25 mg PO Q6H PRN #15 tab 08/30/18 Azithromycin [Zithromax Z-Gabriel] 250 mg PO Q24HR #6 tab 09/03/18 Methylprednisolone [Medrol Dose Gabriel] 4 mg PO DAILY 6 Days #21 tab 09/03/18
[2018-09-03] MEDS ORDERED: DEXAMETHASONE INJ 10 MG/ML VIAL IM ONE (17:39)
[2018-09-03 17:40] VITALS: BP 116/74; TEMP 97.7; O2SAT 97
== END 2018-09-03 18:14 | disposition home or self-care (01) ==
LOC: ER 17:27
DX: J40 Bronchitis, not specified as acute or chronic (principal); Z87.891 Personal history of nicotine dependence; Z91.040 Latex allergy status

== ENCOUNTER 2019-02-16 07:20 | Emergency (ER) | payer BC, SELFPAY ==
[2019-02-16 07:37] VITALS: O2SAT 97
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
[2019-02-16 09:01] VITALS: BP 131/80; TEMP 96.3
== END 2019-02-16 09:01 | disposition home or self-care (01) ==
LOC: ER 07:20
DX: S16.1XXA Strain of muscle, fascia and tendon at neck level, initial encounter (principal); S80.02XA Contusion of left knee, initial encounter; M54.5 Low back pain; Z87.891 Personal history of nicotine dependence; Z91.040 Latex allergy status; V49.88XA Car occupant (driver) (passenger) injured in other specified transport accidents, initial encounter; Y92.410 Unspecified street and highway as the place of occurrence of the external cause